=== PATIENT | male | born 1950 | race Caucasian/White ===

== ENCOUNTER → 2016-10-08 | Outpatient (CLI) | payer MEDICARE, OTHER | END | disposition home or self-care (01) | LOC: Rad HDHVI 10:47 | PROVIDERS: ATTEND Internal Medicine Cardiovascular Disease | DX: I10 Essential (primary) hypertension (principal); I25.10 Atherosclerotic heart disease of native coronary artery without angina pectoris; I51.7 Cardiomegaly; I73.89 Other specified peripheral vascular diseases; I70.0 Atherosclerosis of aorta | CPT/HCPCS: 93880 ==

== ENCOUNTER → 2016-11-24 | Outpatient (CLI) | payer MEDICARE, OTHER ==
[~2016-11-24] VITALS: Ht 182.9 cm; Wt 95.3 kg
[~2016-11-24] MED LIST: ADENOSINE 80 MG in GIVE UN-DILUTED 0 ML IV ONE; ADENOSINE 90 MG/30 ML INJ IV ONE
== END | disposition home or self-care (01) ==
LOC: Rad HDHVI 14:12
PROVIDERS: ATTEND Internal Medicine Cardiovascular Disease
DX: R07.9 Chest pain, unspecified (principal); I10 Essential (primary) hypertension; I25.5 Ischemic cardiomyopathy; E11.9 Type 2 diabetes mellitus without complications; E78.00 Pure hypercholesterolemia, unspecified; Z95.1 Presence of aortocoronary bypass graft; Z82.49 Family history of ischemic heart disease and other diseases of the circulatory system
CPT/HCPCS: 78452; 93005; 96374; 96375; A9500; J0153

== ENCOUNTER → 2017-07-13 | Outpatient (CLI) | payer MEDICARE, OTHER | END | disposition home or self-care (01) | LOC: Rad HDHVI 08:08 | PROVIDERS: ATTEND Internal Medicine Cardiovascular Disease | DX: I37.1 Nonrheumatic pulmonary valve insufficiency (principal); Z95.1 Presence of aortocoronary bypass graft | CPT/HCPCS: 93306 ==

== ENCOUNTER → 2017-11-17 | Outpatient (CLI) | payer MEDICARE, OTHER ==
[2017-11-17 11:45] VITALS: BP 99/52
[2017-11-17 12:45] VITALS: BP 102/61
[2017-11-17 15:58] LABS: Urine Blood Negative /uL (Negative); Urine Specific Gravity 1.012 (1.001-1.035)
[2017-11-17 16:15] LABS: Albumin 3.3 g/dL (3.4-5.0); BUN/Creatinine Ratio 14.7; Bilirubin, Direct 0.5 mg/dL (0-0.2); Bilirubin, Total 0.9 mg/dL (0.2-1.0); Calcium 8.8 mg/dL (8.5-10.1); Potassium 3.6 mmol/L (3.5-5.1); Total Protein 6.7 g/dL (6.4-8.2)
[2017-11-17 16:16] LABS: Basophils # (auto) 0 uL; Basophils % (auto) 0.8 % (0.0-2.0); Eosinophils # (auto) 0.1 uL; Hematocrit 35.1 % (41.0-53.0); Hemoglobin 11.7 g/dL (13.5-17.5); Lymphocytes # (auto) 0.6 uL; Lymphocytes % (auto) 27.8 % (10.0-50.0); Mean Corpuscular Hemoglobin 30.9 pg (28.0-32.0); Mean Corpuscular Hgb Conc. 33.3 g/dL (32.0-36.0); Mean Corpuscular Volume 92.8 fL (80.0-100.0); Monocytes # (auto) 0.2 uL; Neutrophils # (auto) 1.2 uL; Neutrophils % (auto) 55.4 % (37.0-80.0); Nucleated Red Blood Cells % 0.8 %; Platelet Count (auto) 66 10^3/uL (140-450); Prostate Specific Antigen 0.81 ng/mL (0.0-4.0); Red Blood Cells 3.78 10^6/uL (4.5-5.90); Red Cell Distribution Width 17.9 % (11.8-14.3); White Blood Cell 2.1 10^3/uL (4.4-10.8)
== END | disposition home or self-care (01) ==
LOC: CHF HDHVI 11:51
PROVIDERS: ATTEND Internal Medicine Cardiovascular Disease
DX: E78.00 Pure hypercholesterolemia, unspecified (principal); D64.9 Anemia, unspecified; I10 Essential (primary) hypertension; E11.9 Type 2 diabetes mellitus without complications; E03.9 Hypothyroidism, unspecified; E55.9 Vitamin D deficiency, unspecified; K74.1 Hepatic sclerosis; D51.9 Vitamin B12 deficiency anemia, unspecified; R53.81 Other malaise; R97.20 Elevated prostate specific antigen [PSA]; N39.0 Urinary tract infection, site not specified; I25.10 Atherosclerotic heart disease of native coronary artery without angina pectoris; R55 Syncope and collapse
CPT/HCPCS: 36415; 80048; 80061; 80076; 81003; 82306; 82607; 82962; 83036; 84153; 84403; 84443; 85025; 87086; 87088; 87186; G0463

== ENCOUNTER → 2017-12-15 | Outpatient (CLI) | payer MEDICARE, OTHER | END | disposition home or self-care (01) | LOC: Rad HDHVI 13:10 | PROVIDERS: ATTEND Internal Medicine Cardiovascular Disease | DX: I25.5 Ischemic cardiomyopathy (principal); D64.9 Anemia, unspecified; E11.9 Type 2 diabetes mellitus without complications; I95.9 Hypotension, unspecified; R07.89 Other chest pain; I67.2 Cerebral atherosclerosis | CPT/HCPCS: 70450 ==

== ENCOUNTER → 2017-12-18 | Outpatient (CLI) | payer MEDICARE, OTHER ==
[~2017-12-18] MED LIST changes: -ADENOSINE 80 MG in GIVE UN-DILUTED 0 ML IV ONE; -ADENOSINE 90 MG/30 ML INJ IV ONE; +IOHEXOL 350 MG/ML 100ML IJ ONE; +READI-CAT 2 (BARIUM SULF)(VANILLA SMOOTHIE) 450ML ONE
[2017-12-18 10:40] VITALS: BP 130/80
[2017-12-18 11:35] VITALS: BP 106/50
== END | disposition home or self-care (01) ==
LOC: Rad HDHVI 10:24
PROVIDERS: ATTEND Internal Medicine
DX: K74.60 Unspecified cirrhosis of liver (principal); K80.20 Calculus of gallbladder without cholecystitis without obstruction; J90 Pleural effusion, not elsewhere classified; E11.9 Type 2 diabetes mellitus without complications; E78.00 Pure hypercholesterolemia, unspecified
CPT/HCPCS: 74177; 82565; G0463; Q9967

== ENCOUNTER 2017-12-25 01:45 | Inpatient (IN) | payer MEDICARE, OTHER ==
[~2017-12-25] VITALS: Ht 182.9 cm; Wt 89.8 kg
[2017-12-25 02:51] LABS: Basophils # (auto) 0 uL; Basophils % (auto) 0.9 % (0.0-2.0); Eosinophils # (auto) 0.2 uL; Eosinophils % (auto) 3.7 % (0.0-7.0); Hematocrit 36.6 % (41.0-53.0); Lymphocytes # (auto) 0.9 uL; Lymphocytes % (auto) 20.5 % (10.0-50.0); Mean Corpuscular Hemoglobin 30.8 pg (28.0-32.0); Mean Corpuscular Hgb Conc. 32.9 g/dL (32.0-36.0); Mean Corpuscular Volume 93.7 fL (80.0-100.0); Monocytes # (auto) 0.5 uL; Monocytes % (auto) 11.8 % (0.0-12.0); Neutrophils # (auto) 2.9 uL; Neutrophils % (auto) 63.1 % (37.0-80.0); Nucleated Red Blood Cells % 0.3 %; Platelet Count (auto) 87 10^3/uL (140-450); Red Blood Cells 3.91 10^6/uL (4.5-5.90); Red Cell Distribution Width 17.8 % (11.8-14.3); White Blood Cell 4.6 10^3/uL (4.4-10.8)
[2017-12-25 02:55] LABS: INR 1.15 (0.9-1.15); Partial Thromboplastin Time 28.8 sec (22.64-33.71); Prothrombin Time 12.5 sec (9.37-12.3)
[2017-12-25 03:03] LABS: Alanine Aminotransferase 9 U/L (16-61); Albumin 3.4 g/dL (3.4-5.0); Alkaline Phosphatase 136 U/L (45-117); Anion Gap 11 (5-15); Aspartate Aminotransferase 42 U/L (15-37); BUN/Creatinine Ratio 11.3; Bilirubin, Total 1.2 mg/dL (0.2-1.0); Blood Urea Nitrogen 12 mg/dL (7-18); Calcium 9.7 mg/dL (8.5-10.1); Carbon Dioxide 24 mmol/L (21-32); Chloride 106 mmol/L (98-107); GFR African American 89 mL/min; GFR Non-African American 74 mL/min; Glucose 93 mg/dL (74-106); Potassium 3.7 mmol/L (3.5-5.1); Sodium 141 mmol/L (136-145); Total Protein 7.2 g/dL (6.4-8.2)
[2017-12-25] MEDS ORDERED: PANTOPRAZOLE 40 MG/10 ML VIAL IV ONE (03:45)
[2017-12-25] MEDS ORDERED: ACETAMINOPHEN 500 MG TAB PO PRN (08:00)
[2017-12-25] MEDS: DULoxetine HCL 30 MG CAP PO SCH (10:00)
[2017-12-25] MEDS ORDERED: ALPRAZolam 0.5 MG TAB PO SCH (10:00)
[2017-12-25] MEDS: CARVEDILOL 12.5 MG TAB PO SCH (10:00)
[2017-12-25] MEDS: SPIRONOLACTONE 25 MG TAB PO SCH (10:00)
[2017-12-25] MEDS: FUROSEMIDE 40 MG/4 ML VIAL IV SCH (10:00)
[2017-12-25] MEDS: PANTOPRAZOLE 40 MG/10 ML VIAL IV SCH ×2 (17:31→21:44)
[2017-12-25] MEDS: ATORVASTATIN 20 MG TAB PO SCH (21:46)
[2017-12-25] MEDS: HYDROcodone-ACET 5/325MG TAB PO PRN (21:55)
[2017-12-25] MEDS: ZOLPIDEM TARTRATE 5 MG TAB PO PRN (21:55)
[2017-12-25 22:23] VITALS: BP 106/60
[2017-12-25 23:58] VITALS: BP 140/67
[2017-12-26] MEDS ORDERED: HYDR-4683 PO (00:30)
[2017-12-26] MEDS ORDERED: ESOM40CA39 PO (00:31)
[2017-12-26] MEDS ORDERED: FURO40TA PO (00:31)
[2017-12-26] MEDS ORDERED: ATOR80TA PO (00:32)
[2017-12-26] MEDS ORDERED: DULO20CA PO (00:32)
[2017-12-26] MEDS ORDERED: SPIR25TA88 PO (00:33)
[2017-12-26] MEDS ORDERED: ZOLP10TA PO (00:33)
[2017-12-26] MEDS ORDERED: CELE100C82 PO (00:33)
[2017-12-26] MEDS ORDERED: METO-281 PO (00:35)
[2017-12-26] MEDS ORDERED: METF1000 PO (00:35)
[2017-12-26] MEDS ORDERED: ALPR1TAB2 PO (00:36)
[2017-12-26] MEDS ORDERED: CARV25TA PO (00:36)
[2017-12-26] MEDS ORDERED: CARB25TA3 PO (00:37)
[2017-12-26] MEDS ORDERED: GEMF600T PO (00:37)
[2017-12-26] MEDS ORDERED: CLOP75TA28 PO (00:38)
[2017-12-26 04:58] VITALS: BP 102/46
[2017-12-26 09:00] VITALS: BP 104/59
[2017-12-26 09:53] VITALS: BP 104/59
[2017-12-26] MEDS: FUROSEMIDE 40 MG/4 ML VIAL IV SCH (09:54)
[2017-12-26] MEDS: SPIRONOLACTONE 25 MG TAB PO SCH (09:54)
[2017-12-26] MEDS: PANTOPRAZOLE 40 MG/10 ML VIAL IV SCH ×2 (09:54→22:34)
[2017-12-26] MEDS: DULoxetine HCL 30 MG CAP PO SCH (09:55)
[2017-12-26] MEDS: CARVEDILOL 12.5 MG TAB PO SCH (09:55)
[2017-12-26 11:32] LABS: Urine Bacteria NONE SEEN /hpf (None Seen); Urine Blood Negative /uL (Negative); Urine WBC <1 /hpf (0 - 3)
[2017-12-26 13:00] VITALS: BP 105/62
[2017-12-26 13:35] LABS: Basophils # (auto) 0 uL; Basophils % (auto) 0.6 % (0.0-2.0); Eosinophils # (auto) 0.1 uL; Eosinophils % (auto) 2.1 % (0.0-7.0); Hematocrit 38.2 % (41.0-53.0); Hemoglobin 12.5 g/dL (13.5-17.5); Lymphocytes # (auto) 0.7 uL; Lymphocytes % (auto) 12.7 % (10.0-50.0); Mean Corpuscular Hemoglobin 30.4 pg (28.0-32.0); Mean Corpuscular Hgb Conc. 32.6 g/dL (32.0-36.0); Mean Corpuscular Volume 93.3 fL (80.0-100.0); Monocytes # (auto) 0.6 uL; Monocytes % (auto) 11.1 % (0.0-12.0); Neutrophils # (auto) 4.1 uL; Neutrophils % (auto) 73.5 % (37.0-80.0); Nucleated Red Blood Cells % 0.1 %; Platelet Count (auto) 95 10^3/uL (140-450); Red Cell Distribution Width 17.9 % (11.8-14.3); White Blood Cell 5.6 10^3/uL (4.4-10.8)
[2017-12-26 17:00] VITALS: BP 110/66
[2017-12-26 22:00] VITALS: BP 118/70
[2017-12-26] MEDS: ATORVASTATIN 20 MG TAB PO SCH (22:00)
[2017-12-26] MEDS: HYDROcodone-ACET 5/325MG TAB PO PRN (22:34)
[2017-12-27] MEDS: ALPRAZolam 0.25 MG TAB PO PRN ×2 (00:09→21:50)
[2017-12-27] MEDS: ZOLPIDEM TARTRATE 5 MG TAB PO PRN (01:02)
[2017-12-27 05:00] VITALS: BP 130/69
[2017-12-27 06:53] LABS: Basophils # (auto) 0 uL; Basophils % (auto) 0.4 % (0.0-2.0); Eosinophils # (auto) 0 uL; Eosinophils % (auto) 1.6 % (0.0-7.0); Hematocrit 34.1 % (41.0-53.0); Hemoglobin 11.4 g/dL (13.5-17.5); Lymphocytes # (auto) 0.5 uL; Lymphocytes % (auto) 16.5 % (10.0-50.0); Mean Corpuscular Hemoglobin 31.3 pg (28.0-32.0); Mean Corpuscular Hgb Conc. 33.3 g/dL (32.0-36.0); Mean Corpuscular Volume 94.1 fL (80.0-100.0); Monocytes # (auto) 0.4 uL; Monocytes % (auto) 12.2 % (0.0-12.0); Neutrophils # (auto) 2.2 uL; Neutrophils % (auto) 69.3 % (37.0-80.0); Nucleated Red Blood Cells % 0.1 %; Platelet Count (auto) 68 10^3/uL (140-450); Red Blood Cells 3.62 10^6/uL (4.5-5.90); Red Cell Distribution Width 16.8 % (11.8-14.3); White Blood Cell 3.2 10^3/uL (4.4-10.8)
[2017-12-27 07:31] LABS: BUN/Creatinine Ratio 14.6; Bilirubin, Total 1.7 mg/dL (0.2-1.0); Calcium 8.2 mg/dL (8.5-10.1); Magnesium 1.4 mg/dL (1.6-2.6); Potassium 3.4 mmol/L (3.5-5.1); Total Protein 6.5 g/dL (6.4-8.2)
[2017-12-27 09:00] VITALS: BP 106/59
[2017-12-27] MEDS: FUROSEMIDE 40 MG/4 ML VIAL IV SCH (10:18)
[2017-12-27] MEDS: PANTOPRAZOLE 40 MG/10 ML VIAL IV SCH ×2 (10:18→21:50)
[2017-12-27] MEDS: SPIRONOLACTONE 25 MG TAB PO SCH (10:19)
[2017-12-27] MEDS: CARVEDILOL 12.5 MG TAB PO SCH (10:19)
[2017-12-27] MEDS: DULoxetine HCL 30 MG CAP PO SCH (10:19)
[2017-12-27] MEDS ORDERED: POTASSIUM CHL 20 Meq TABLET PO ONE (10:45)
[2017-12-27] MEDS: MAGNESIUM SULFATE 1GM/100ML 100 ML IV SCH ×2 (11:27→12:00)
[2017-12-27 13:00] VITALS: BP 111/67
[2017-12-27 18:19] VITALS: BP 108/65
[2017-12-27] MEDS: HYDROcodone-ACET 5/325MG TAB PO PRN (21:50)
[2017-12-27] MEDS: ATORVASTATIN 20 MG TAB PO SCH (21:50)
[2017-12-27 22:00] VITALS: BP 116/72
[2017-12-27] MEDS: ONDANSETRON HCL 4 MG/2 ML VIAL IV PRN (23:44)
[2017-12-28] MEDS: ZOLPIDEM TARTRATE 5 MG TAB PO PRN (01:57)
[2017-12-28] MEDS: HYDROcodone-ACET 5/325MG TAB PO PRN (02:00)
[2017-12-28 05:00] VITALS: BP 99/48
[2017-12-28 07:08] LABS: Basophils # (auto) 0 uL; Basophils % (auto) 0.4 % (0.0-2.0); Eosinophils # (auto) 0.1 uL; Eosinophils % (auto) 2.3 % (0.0-7.0); Hematocrit 33.6 % (41.0-53.0); Hemoglobin 11.3 g/dL (13.5-17.5); Lymphocytes # (auto) 0.6 uL; Lymphocytes % (auto) 20.3 % (10.0-50.0); Mean Corpuscular Hemoglobin 31.4 pg (28.0-32.0); Mean Corpuscular Hgb Conc. 33.7 g/dL (32.0-36.0); Mean Corpuscular Volume 93.2 fL (80.0-100.0); Monocytes # (auto) 0.3 uL; Monocytes % (auto) 10.1 % (0.0-12.0); Neutrophils # (auto) 2.1 uL; Neutrophils % (auto) 66.9 % (37.0-80.0); Nucleated Red Blood Cells % 0.1 %; Platelet Count (auto) 65 10^3/uL (140-450); Red Cell Distribution Width 17.8 % (11.8-14.3); White Blood Cell 3.2 10^3/uL (4.4-10.8)
[2017-12-28 07:22] LABS: INR 1.21 (0.9-1.15); Partial Thromboplastin Time 33.4 sec (22.64-33.71); Prothrombin Time 13.2 sec (9.37-12.3)
[2017-12-28 07:32] LABS: BUN/Creatinine Ratio 15.7; Bilirubin, Total 1.6 mg/dL (0.2-1.0); Calcium 8.3 mg/dL (8.5-10.1); Magnesium 1.8 mg/dL (1.6-2.6); Potassium 3.4 mmol/L (3.5-5.1); Total Protein 6.4 g/dL (6.4-8.2)
[2017-12-28 08:00] VITALS: BP 100/64
[2017-12-28] MEDS ORDERED: LIDOCAINE VISCOUS 2% 15ML UD ONE (08:08)
[2017-12-28] MEDS ORDERED: diphenhdrAMINE HCL 50 MG/1 ML VL ONE (08:09)
[2017-12-28] MEDS: DULoxetine HCL 30 MG CAP PO SCH (09:01)
[2017-12-28] MEDS: CARVEDILOL 12.5 MG TAB PO SCH (09:02)
[2017-12-28 09:06] VITALS: BP 100/64
[2017-12-28] MEDS: SPIRONOLACTONE 25 MG TAB PO SCH (09:08)
[2017-12-28] MEDS: PANTOPRAZOLE 40 MG/10 ML VIAL IV SCH ×3 (09:08→22:18)
[2017-12-28] MEDS: MIDAZOLAM HCL 5 MG/ML-1ML VIAL ONE ×2 (11:28→11:31)
[2017-12-28] MEDS: fentaNYL CITRATE 100 MCG/2 ML VL ONE ×2 (11:28→11:31)
[2017-12-28 17:00] VITALS: BP 113/63
[2017-12-28] MEDS: ATORVASTATIN 20 MG TAB PO SCH (21:27)
[2017-12-28] MEDS: ALPRAZolam 0.25 MG TAB PO PRN (21:28)
[2017-12-28] MEDS: CYCLOBENZAPRINE HCL 10 MG TAB PO PRN (21:28)
[2017-12-28 22:54] VITALS: BP 108/56
[2017-12-29] VITALS (7 sets, daily range): BP systolic 100–123; BP diastolic 50–76
[2017-12-29] MEDS: DULoxetine HCL 30 MG CAP PO SCH (10:23)
[2017-12-29] MEDS: SPIRONOLACTONE 25 MG TAB PO SCH (10:23)
[2017-12-29] MEDS: CARVEDILOL 12.5 MG TAB PO SCH (10:31)
[2017-12-29] MEDS: BOOST 8 ounces PO SCH (18:00)
[2017-12-29] MEDS: LACTULOSE 20Gm/30ML SOLN PO SCH (18:00)
[2017-12-29] MEDS ORDERED: EPOETIN ALFA 10,000 UNIT/1 ML VIAL SC ONE (18:00)
[2017-12-29 19:48] LABS: Basophils # (auto) 0 uL; Basophils % (auto) 0.9 % (0.0-2.0); Eosinophils # (auto) 0.1 uL; Eosinophils % (auto) 2.9 % (0.0-7.0); Hematocrit 37.2 % (41.0-53.0); Hemoglobin 12.2 g/dL (13.5-17.5); Lymphocytes # (auto) 0.9 uL; Lymphocytes % (auto) 20.4 % (10.0-50.0); Mean Corpuscular Hemoglobin 30.9 pg (28.0-32.0); Mean Corpuscular Hgb Conc. 32.8 g/dL (32.0-36.0); Mean Corpuscular Volume 94.3 fL (80.0-100.0); Monocytes # (auto) 0.5 uL; Neutrophils # (auto) 2.9 uL; Neutrophils % (auto) 63.8 % (37.0-80.0); Nucleated Red Blood Cells % 0.1 %; Platelet Count (auto) 92 10^3/uL (140-450); Red Blood Cells 3.95 10^6/uL (4.5-5.90); Red Cell Distribution Width 17.7 % (11.8-14.3); White Blood Cell 4.5 10^3/uL (4.4-10.8)
[2017-12-29] MEDS: ATORVASTATIN 20 MG TAB PO SCH (21:36)
[2017-12-29] MEDS: ALPRAZolam 0.25 MG TAB PO PRN (21:36)
[2017-12-29] MEDS ORDERED: PANTOPRAZOLE 40 MG TAB PO SCH (22:00)
[2017-12-29] MEDS: CYCLOBENZAPRINE HCL 10 MG TAB PO PRN (23:06)
[2017-12-30] VITALS (7 sets, daily range): BP systolic 100–124; BP diastolic 47–81
[2017-12-30] MEDS ORDERED: LACTULOSE 20Gm/30ML SOLN PO ONE (00:30)
[2017-12-30] MEDS: BOOST 8 ounces PO SCH ×2 (08:00→18:01)
[2017-12-30] MEDS: LACTULOSE 20Gm/30ML SOLN PO SCH (09:20)
[2017-12-30] MEDS: DULoxetine HCL 30 MG CAP PO SCH (09:20)
[2017-12-30] MEDS: FAMOTIDINE 20 MG TAB PO SCH (09:20)
[2017-12-30] MEDS: SPIRONOLACTONE 25 MG TAB PO SCH (09:20)
[2017-12-30] MEDS: CARVEDILOL 12.5 MG TAB PO SCH (09:21)
[2017-12-30] MEDS: ATORVASTATIN 20 MG TAB PO SCH (21:56)
[2017-12-31 05:00] VITALS: BP 133/68
[2017-12-31] MEDS: BOOST 8 ounces PO SCH ×2 (08:00→18:00)
[2017-12-31 09:05] VITALS: BP 102/71
[2017-12-31 09:37] LABS: Basophils # (auto) 0 uL; Basophils % (auto) 0.9 % (0.0-2.0); Eosinophils # (auto) 0.1 uL; Eosinophils % (auto) 2.2 % (0.0-7.0); Hemoglobin 12.7 g/dL (13.5-17.5); Lymphocytes # (auto) 0.8 uL; Lymphocytes % (auto) 15.3 % (10.0-50.0); Mean Corpuscular Hemoglobin 31.2 pg (28.0-32.0); Mean Corpuscular Hgb Conc. 33.4 g/dL (32.0-36.0); Mean Corpuscular Volume 93.5 fL (80.0-100.0); Monocytes # (auto) 0.5 uL; Monocytes % (auto) 9.1 % (0.0-12.0); Neutrophils # (auto) 3.6 uL; Neutrophils % (auto) 72.5 % (37.0-80.0); Nucleated Red Blood Cells % 0.3 %; Platelet Count (auto) 87 10^3/uL (140-450); Red Blood Cells 4.07 10^6/uL (4.5-5.90); Red Cell Distribution Width 17.9 % (11.8-14.3)
[2017-12-31] MEDS: ONDANSETRON HCL 4 MG/2 ML VIAL IV PRN ×2 (09:40→16:09)
[2017-12-31 09:57] LABS: BUN/Creatinine Ratio 20.5
[2017-12-31] MEDS: LACTULOSE 20Gm/30ML SOLN PO SCH (10:57)
[2017-12-31] MEDS: SPIRONOLACTONE 25 MG TAB PO SCH (10:57)
[2017-12-31] MEDS: FAMOTIDINE 20 MG TAB PO SCH (10:58)
[2017-12-31] MEDS: DULoxetine HCL 30 MG CAP PO SCH (10:58)
[2017-12-31] MEDS: CARVEDILOL 12.5 MG TAB PO SCH (10:58)
[2017-12-31 13:00] VITALS: BP 135/86
[2017-12-31 17:00] VITALS: BP 131/74
[2017-12-31] MEDS ORDERED: HALOPERIDOL LACTATE 5 MG/ML INJ VIAL IM PRN (17:00)
[2017-12-31 22:00] VITALS: BP 135/70
[2017-12-31] MEDS: ATORVASTATIN 20 MG TAB PO SCH (22:00)
[2018-01-01 05:06] VITALS: BP 129/70
[2018-01-01] MEDS: BOOST 8 ounces PO SCH ×2 (08:00→18:46)
[2018-01-01 08:30] VITALS: BP 135/97
[2018-01-01] MEDS: DULoxetine HCL 30 MG CAP PO SCH (11:23)
[2018-01-01] MEDS: FAMOTIDINE 20 MG TAB PO SCH (11:24)
[2018-01-01] MEDS: SPIRONOLACTONE 25 MG TAB PO SCH (11:24)
[2018-01-01] MEDS: LACTULOSE 20Gm/30ML SOLN PO SCH (11:25)
[2018-01-01] MEDS: CARVEDILOL 12.5 MG TAB PO SCH (11:25)
[2018-01-01 12:43] VITALS: BP 106/62
[2018-01-01 15:18] VITALS: BP 129/70
[2018-01-01 17:26] VITALS: BP 114/78
[2018-01-01 22:00] VITALS: BP 104/72
[2018-01-01] MEDS: ATORVASTATIN 20 MG TAB PO SCH (22:19)
[2018-01-02 04:41] VITALS: BP 118/68
[2018-01-02 09:00] VITALS: BP 130/53
[2018-01-02] MEDS: FAMOTIDINE 20 MG TAB PO SCH (09:38)
[2018-01-02] MEDS: BOOST 8 ounces PO SCH ×2 (09:38→17:45)
[2018-01-02] MEDS: DULoxetine HCL 30 MG CAP PO SCH (09:38)
[2018-01-02] MEDS: LACTULOSE 20Gm/30ML SOLN PO SCH (09:38)
[2018-01-02] MEDS: SPIRONOLACTONE 25 MG TAB PO SCH (09:39)
[2018-01-02] MEDS: CARVEDILOL 12.5 MG TAB PO SCH (09:39)
[2018-01-02 13:00] VITALS: BP 127/71
[2018-01-02 17:00] VITALS: BP 141/72
[2018-01-02] MEDS: ATORVASTATIN 20 MG TAB PO SCH (21:17)
[2018-01-02 22:00] VITALS: BP 127/62
[2018-01-02] MEDS: HYDROcodone-ACET 5/325MG TAB PO PRN (23:21)
[2018-01-02] MEDS: ALPRAZolam 0.25 MG TAB PO PRN (23:21)
[2018-01-03 05:27] VITALS: BP 107/63
[2018-01-03 08:37] VITALS: BP 144/66
[2018-01-03] MEDS: BOOST 8 ounces PO SCH ×2 (09:26→18:46)
[2018-01-03] MEDS: LACTULOSE 20Gm/30ML SOLN PO SCH ×2 (10:00→10:26)
[2018-01-03] MEDS: LEVETIRACETAM 500 MG TAB PO SCH ×2 (10:26→21:14)
[2018-01-03] MEDS: DULoxetine HCL 30 MG CAP PO SCH (10:26)
[2018-01-03] MEDS: SPIRONOLACTONE 25 MG TAB PO SCH (10:27)
[2018-01-03] MEDS: FAMOTIDINE 20 MG TAB PO SCH (10:27)
[2018-01-03] MEDS: CARVEDILOL 12.5 MG TAB PO SCH (10:27)
[2018-01-03 12:12] VITALS: BP 132/66
[2018-01-03 16:41] VITALS: BP 102/49
[2018-01-03] MEDS: ATORVASTATIN 20 MG TAB PO SCH (21:14)
[2018-01-03 22:00] VITALS: BP 115/68
[2018-01-03] MEDS: ALPRAZolam 0.25 MG TAB PO PRN (22:51)
[2018-01-04 08:48] VITALS: BP 111/64
[2018-01-04] MEDS: LACTULOSE 20Gm/30ML SOLN PO SCH (10:00)
[2018-01-04] MEDS: FAMOTIDINE 20 MG TAB PO SCH (10:31)
[2018-01-04] MEDS: BOOST 8 ounces PO SCH ×2 (10:31→18:12)
[2018-01-04] MEDS: SPIRONOLACTONE 25 MG TAB PO SCH (10:31)
[2018-01-04] MEDS: LEVETIRACETAM 500 MG TAB PO SCH ×2 (10:32→22:21)
[2018-01-04] MEDS: DULoxetine HCL 30 MG CAP PO SCH (10:32)
[2018-01-04] MEDS: CARVEDILOL 12.5 MG TAB PO SCH (10:34)
[2018-01-04 13:00] VITALS: BP 116/66
[2018-01-04 17:00] VITALS: BP 110/62
[2018-01-04 20:00] VITALS: BP 110/65
[2018-01-04 22:00] VITALS: BP 100/62
[2018-01-04] MEDS: ATORVASTATIN 20 MG TAB PO SCH (22:19)
[2018-01-04] MEDS: ALPRAZolam 0.25 MG TAB PO PRN (22:19)
[2018-01-04] MEDS: HYDROcodone-ACET 5/325MG TAB PO PRN (22:43)
[2018-01-05 05:59] VITALS: BP 109/71
[2018-01-05] MEDS: BOOST 8 ounces PO SCH (09:02)
[2018-01-05] MEDS: LACTULOSE 20Gm/30ML SOLN PO SCH (10:00)
[2018-01-05 10:16] VITALS: BP 125/70
[2018-01-05] MEDS: CARVEDILOL 12.5 MG TAB PO SCH (10:53)
[2018-01-05] MEDS: DULoxetine HCL 30 MG CAP PO SCH (10:54)
[2018-01-05] MEDS: FAMOTIDINE 20 MG TAB PO SCH (10:54)
[2018-01-05] MEDS: LEVETIRACETAM 500 MG TAB PO SCH (10:54)
[2018-01-05] MEDS: SPIRONOLACTONE 25 MG TAB PO SCH (10:54)
[2018-01-05 12:59] VITALS: BP 122/68
[2018-01-05 14:58] VITALS: BP 117/70
== END 2018-01-05 12:50 | disposition hospice, home (50) | DRG 432 ==
LOC: ER 01:45 → EDBD 01:45 → TELE 01:56 → TELE-EAST 19:33 → TELE-CENTR 01-01 13:18
PROVIDERS: ADMIT Nurse Practitioner Family; ATTEND Internal Medicine Cardiovascular Disease
PROC: 5A09357 Assistance with Respiratory Ventilation, Less than 24 Consecutive Hours, Continuous Positive Airway Pressure (ICD-10-PCS; principal; 2017-12-27)
PROC: 06L38CZ Occlusion of Esophageal Vein with Extraluminal Device, Via Natural or Artificial Opening Endoscopic (ICD-10-PCS; 2017-12-28)
PROC: 5A09357 Assistance with Respiratory Ventilation, Less than 24 Consecutive Hours, Continuous Positive Airway Pressure (ICD-10-PCS; 2017-12-29)
PROC: 5A09357 Assistance with Respiratory Ventilation, Less than 24 Consecutive Hours, Continuous Positive Airway Pressure (ICD-10-PCS; 2017-12-30)
DX: K74.60 Unspecified cirrhosis of liver (principal); G93.41 Metabolic encephalopathy; I50.43 Acute on chronic combined systolic (congestive) and diastolic (congestive) heart failure; I85.11 Secondary esophageal varices with bleeding; K76.6 Portal hypertension; R18.8 Other ascites; D69.6 Thrombocytopenia, unspecified; I11.0 Hypertensive heart disease with heart failure; E11.9 Type 2 diabetes mellitus without complications; Z95.810 Presence of automatic (implantable) cardiac defibrillator; E78.5 Hyperlipidemia, unspecified; I25.10 Atherosclerotic heart disease of native coronary artery without angina pectoris; F17.200 Nicotine dependence, unspecified, uncomplicated; G47.30 Sleep apnea, unspecified; K29.70 Gastritis, unspecified, without bleeding; I25.5 Ischemic cardiomyopathy; I67.2 Cerebral atherosclerosis; Z96.641 Presence of right artificial hip joint; M19.90 Unspecified osteoarthritis, unspecified site; J44.9 Chronic obstructive pulmonary disease, unspecified; K31.89 Other diseases of stomach and duodenum; K59.00 Constipation, unspecified; K80.20 Calculus of gallbladder without cholecystitis without obstruction; Z79.02 Long term (current) use of antithrombotics/antiplatelets; Z80.0 Family history of malignant neoplasm of digestive organs; Z79.899 Other long term (current) drug therapy; Z91.041 Radiographic dye allergy status; Z88.8 Allergy status to other drugs, medicaments and biological substances
CPT/HCPCS: 36415; 70450; 71045; 74176; 80048; 80053; 80061; 81001; 82140; 82962; 83036; 83690; 83735; 83880; 84484; 85025; 85610; 85730; 86850; 86900; 86901; 87081; 92610; 93005; 93886; 94660; 95819; 96374; A4565; C9113; J0885; J2250; J2405

== ENCOUNTER 2018-02-15 19:13 | Inpatient (IN) | payer MEDICARE, OTHER ==
[~2018-02-15] VITALS: Ht 182.9 cm; Wt 90.6 kg
[~2018-02-15 19:13] MED LIST changes: +ALPR1TAB2 PO; +ATOR80TA PO; +CARB25TA3 PO; +CARV25TA PO; +CELE100C82 PO; +CLOP75TA28 PO; +DULO20CA PO; +ESOM40CA39 PO; +FURO40TA PO; +GEMF600T PO; +HYDR-4683 PO; -IOHEXOL 350 MG/ML 100ML IJ ONE; +METF1000 PO; +METO-281 PO; -READI-CAT 2 (BARIUM SULF)(VANILLA SMOOTHIE) 450ML ONE; +SPIR25TA88 PO; +ZOLP10TA PO
[2018-02-15] MEDS ORDERED: KETOROLAC TROMETH 30 MG/ML 1ML VIAL IV ONE (19:45)
[2018-02-15 20:46] LABS: Basophils # (auto) 0 uL; Basophils % (auto) 0.7 % (0.0-2.0); Eosinophils # (auto) 0.1 uL; Eosinophils % (auto) 2.4 % (0.0-7.0); Hematocrit 37.6 % (41.0-53.0); Hemoglobin 12.5 g/dL (13.5-17.5); Lymphocytes # (auto) 0.9 uL; Lymphocytes % (auto) 16.7 % (10.0-50.0); Mean Corpuscular Hemoglobin 30.9 pg (28.0-32.0); Mean Corpuscular Hgb Conc. 33.2 g/dL (32.0-36.0); Monocytes # (auto) 0.6 uL; Monocytes % (auto) 10.5 % (0.0-12.0); Neutrophils # (auto) 3.7 uL; Neutrophils % (auto) 69.7 % (37.0-80.0); Nucleated Red Blood Cells % 0.3 %; Red Blood Cells 4.04 10^6/uL (4.5-5.90); Red Cell Distribution Width 17.8 % (11.8-14.3); White Blood Cell 5.3 10^3/uL (4.4-10.8)
[2018-02-15 20:50] LABS: Albumin 2.8 g/dL (3.4-5.0); Anion Gap 10 (5-15); BUN/Creatinine Ratio 11.1; Blood Urea Nitrogen 11 mg/dL (7-18); Calcium 8.5 mg/dL (8.5-10.1); Carbon Dioxide 27 mmol/L (21-32); Chloride 104 mmol/L (98-107); GFR African American 96 mL/min; GFR Non-African American 80 mL/min; Glucose 120 mg/dL (74-106); INR 1.13 (0.9-1.15); Partial Thromboplastin Time 31.9 sec (23.78-33.04); Potassium 3.9 mmol/L (3.5-5.1); Sodium 141 mmol/L (136-145)
[2018-02-15 20:55] LABS: Alanine Aminotransferase 28 U/L (16-61); Alkaline Phosphatase 300 U/L (45-117); Aspartate Aminotransferase 54 U/L (15-37); Bilirubin, Total 1.4 mg/dL (0.2-1.0); Total Protein 6.7 g/dL (6.4-8.2)
[2018-02-15 20:56] LABS: Platelet Count (auto) 118 10^3/uL (140-450)
[2018-02-16] MEDS ORDERED: MORPHINE SULF(PF) 0.5MG/ML 10ML VIAL IV PRN (01:45)
[2018-02-16] MEDS ORDERED: NITROGLYCERIN 0.4 MG SL TAB SL PRN (01:45)
[2018-02-16] MEDS ORDERED: ACETAMINOPHEN 500 MG TAB PO PRN (01:45)
[2018-02-16] MEDS ORDERED: ONDANSETRON HCL 4 MG/2 ML VIAL IV PRN (01:45)
[2018-02-16] MEDS ORDERED: HYDROcodone-ACET 5/325MG TAB PO PRN (01:45)
[2018-02-16 02:55] VITALS: BP 117/71
[2018-02-16 05:00] VITALS: BP 117/71
[2018-02-16 07:04] LABS: Basophils # (auto) 0 uL; Basophils % (auto) 0.5 % (0.0-2.0); Eosinophils # (auto) 0.1 uL; Eosinophils % (auto) 2.7 % (0.0-7.0); Hematocrit 37.2 % (41.0-53.0); Hemoglobin 12.5 g/dL (13.5-17.5); Lymphocytes # (auto) 0.9 uL; Lymphocytes % (auto) 19.3 % (10.0-50.0); Mean Corpuscular Hemoglobin 31.5 pg (28.0-32.0); Mean Corpuscular Hgb Conc. 33.7 g/dL (32.0-36.0); Mean Corpuscular Volume 93.6 fL (80.0-100.0); Monocytes # (auto) 0.6 uL; Monocytes % (auto) 11.7 % (0.0-12.0); Neutrophils # (auto) 3.2 uL; Neutrophils % (auto) 65.8 % (37.0-80.0); Nucleated Red Blood Cells % 0.2 %; Platelet Count (auto) 109 10^3/uL (140-450); Red Blood Cells 3.97 10^6/uL (4.5-5.90); Red Cell Distribution Width 17.7 % (11.8-14.3); White Blood Cell 4.9 10^3/uL (4.4-10.8)
[2018-02-16 07:25] LABS: Anion Gap 13 (5-15); Blood Urea Nitrogen 12 mg/dL (7-18); Calcium 8.7 mg/dL (8.5-10.1); Carbon Dioxide 25 mmol/L (21-32); Chloride 101 mmol/L (98-107); GFR African American 105 mL/min; GFR Non-African American 87 mL/min; Glucose 102 mg/dL (74-106); Potassium 3.3 mmol/L (3.5-5.1); Sodium 139 mmol/L (136-145)
[2018-02-16 08:55] VITALS: BP 106/64
[2018-02-16] MEDS: CLOPIDOGREL BISULFATE 75 MG TAB PO SCH (09:49)
[2018-02-16] MEDS: FUROSEMIDE 20 MG TAB PO SCH (09:49)
[2018-02-16] MEDS: SPIRONOLACTONE 25 MG TAB PO SCH (09:50)
[2018-02-16] MEDS ORDERED: LEVETIRACETAM 500 MG TAB PO SCH (10:00)
[2018-02-16] MEDS: CARVEDILOL 12.5 MG TAB PO SCH (10:00)
[2018-02-16 13:00] VITALS: BP 99/58
[2018-02-16 17:00] VITALS: BP 115/68
[2018-02-16] MEDS: ATORVASTATIN 20 MG TAB PO SCH (21:27)
[2018-02-16 22:00] VITALS: BP 97/53
[2018-02-16] MEDS: HYDROcodone-ACET 10/325MG TAB PO PRN (22:18)
[2018-02-17] VITALS (7 sets, daily range): BP systolic 97–138; BP diastolic 50–80
[2018-02-17] MEDS: CLOPIDOGREL BISULFATE 75 MG TAB PO SCH (09:37)
[2018-02-17] MEDS: CARVEDILOL 12.5 MG TAB PO SCH (09:37)
[2018-02-17] MEDS: FUROSEMIDE 20 MG TAB PO SCH (09:37)
[2018-02-17] MEDS: SPIRONOLACTONE 25 MG TAB PO SCH (09:37)
[2018-02-17] MEDS: HYDROcodone-ACET 10/325MG TAB PO PRN ×2 (10:40→20:00)
[2018-02-17] MEDS ORDERED: fentaNYL CITRATE 100 MCG/2 ML VL ONE (10:51)
[2018-02-17] MEDS ORDERED: MIDAZOLAM HCL 1MG/1ML-2 ML VIAL ONE (10:51)
[2018-02-17] MEDS ORDERED: LIDOCAINE 2% (LOCAL ANESTH.) PF 5ml SDV ONE ×2 (10:54)
[2018-02-17] MEDS: ATORVASTATIN 20 MG TAB PO SCH (21:41)
[2018-02-17] MEDS: ZOLPIDEM TARTRATE 5 MG TAB PO PRN (21:45)
[2018-02-17] MEDS: ALPRAZolam 0.5 MG TAB PO PRN (21:45)
[2018-02-18 02:14] LABS: Urine Bacteria NONE SEEN /hpf (None Seen); Urine Blood Negative /uL (Negative); Urine WBC 2 /hpf (0 - 3)
[2018-02-18] MEDS: HYDROcodone-ACET 10/325MG TAB PO PRN ×3 (04:11→21:59)
[2018-02-18 05:18] VITALS: BP 107/61
[2018-02-18 08:00] VITALS: BP 106/57
[2018-02-18 08:19] VITALS: BP 106/57
[2018-02-18] MEDS ORDERED: GASTROGRAFIN 30 ML SOL ONE (08:52)
[2018-02-18] MEDS: CLOPIDOGREL BISULFATE 75 MG TAB PO SCH (09:53)
[2018-02-18] MEDS: SPIRONOLACTONE 25 MG TAB PO SCH (09:54)
[2018-02-18] MEDS: FUROSEMIDE 20 MG TAB PO SCH (09:55)
[2018-02-18] MEDS: CARVEDILOL 12.5 MG TAB PO SCH (09:55)
[2018-02-18 12:30] VITALS: BP 120/73
[2018-02-18 17:00] VITALS: BP 121/61
[2018-02-18] MEDS: ZOLPIDEM TARTRATE 5 MG TAB PO PRN (21:59)
[2018-02-18] MEDS: ATORVASTATIN 20 MG TAB PO SCH (21:59)
[2018-02-18 22:00] VITALS: BP 113/59
[2018-02-18] MEDS: ALPRAZolam 0.5 MG TAB PO PRN (22:00)
[2018-02-19 05:00] VITALS: BP 108/59
[2018-02-19 08:00] VITALS: BP 99/47
[2018-02-19 09:00] VITALS: BP 99/47
[2018-02-19] MEDS: FUROSEMIDE 20 MG TAB PO SCH (10:00)
[2018-02-19] MEDS: CARVEDILOL 12.5 MG TAB PO SCH (10:00)
[2018-02-19] MEDS: SPIRONOLACTONE 25 MG TAB PO SCH (10:57)
[2018-02-19] MEDS: CLOPIDOGREL BISULFATE 75 MG TAB PO SCH (10:57)
[2018-02-19 13:00] VITALS: BP 109/54
[2018-02-19 16:50] VITALS: BP 113/61
[2018-02-19 18:08] VITALS: BP 109/54
== END 2018-02-19 19:00 | disposition home or self-care (01) | DRG 180 ==
LOC: EDBD 19:13 → ER 19:13 → TELE 19:14 → TELE-WESTW 02-16 03:17
PROVIDERS: ADMIT Nurse Practitioner Family; ATTEND Internal Medicine Cardiovascular Disease
PROC: 0BBG3ZX Excision of Left Upper Lung Lobe, Percutaneous Approach, Diagnostic (ICD-10-PCS; principal; 2018-02-17)
DX: C34.92 Malignant neoplasm of unspecified part of left bronchus or lung (principal); G93.41 Metabolic encephalopathy; I50.23 Acute on chronic systolic (congestive) heart failure; R64 Cachexia; K76.6 Portal hypertension; I24.9 Acute ischemic heart disease, unspecified; I11.0 Hypertensive heart disease with heart failure; I25.2 Old myocardial infarction; I25.5 Ischemic cardiomyopathy; E87.6 Hypokalemia; E11.9 Type 2 diabetes mellitus without complications; I25.10 Atherosclerotic heart disease of native coronary artery without angina pectoris; K74.60 Unspecified cirrhosis of liver; J44.9 Chronic obstructive pulmonary disease, unspecified; M19.90 Unspecified osteoarthritis, unspecified site; D64.9 Anemia, unspecified; F17.210 Nicotine dependence, cigarettes, uncomplicated; E78.5 Hyperlipidemia, unspecified; Z79.84 Long term (current) use of oral hypoglycemic drugs; Z79.899 Other long term (current) drug therapy; Z80.0 Family history of malignant neoplasm of digestive organs; Z95.5 Presence of coronary angioplasty implant and graft; Z95.810 Presence of automatic (implantable) cardiac defibrillator; Z95.1 Presence of aortocoronary bypass graft; Z88.8 Allergy status to other drugs, medicaments and biological substances; Z91.041 Radiographic dye allergy status; Z68.27 Body mass index [BMI] 27.0-27.9, adult
CPT/HCPCS: 10022; 36415; 70450; 71046; 71250; 74176; 77012; 78306; 80048; 80053; 81001; 82962; 83735; 83880; 84484; 85025; 85610; 85730; 93005; 94660; 94761; 96374; J1885; J2250; J7042